=== PATIENT | female | born 1965 | race Caucasian/White ===

== ENCOUNTER 2024-05-18 14:00 | Emergency (ER) | payer SELFPAY ==
[~2024-05-18] VITALS: Ht 165.1 cm; Wt 97.5 kg
[2024-05-18 15:01] VITALS: BP 107/65; PULSE 77; RESP 19; TEMP 98.2; O2SAT 100
[2024-05-18] MEDS: KETOROLAC 30 MG/ML VIAL IM ONE (16:35)
[2024-05-18 16:55] LABS: HEMOGLOBIN 12.4 g/dL (12.0-16.0); MEAN CORPUSCULAR HEMOGLOBIN 26 pg (27-31); MEAN CORPUSCULAR HGB CONC 32 g/dL (33-37); MEAN CORPUSCULAR VOLUME 80.4 fL (80-94); PLATELET COUNT (AUTO) 287 K/uL (140-450); RED BLOOD CELL COUNT(AUTO) 4.84 MIL/uL (4.20-5.40); RED CELL DISTRIBUTION WIDTH 18.3 % (11.6-13.7); WHITE BLOOD COUNT (AUTO) 10.1 K/uL (4.8-10.8)
[2024-05-18 17:05] LABS: APPEARANCE,URINE CLEAR (CLEAR); BILIRUBIN,URINE 1+ (NEGATIVE); BLOOD, URINE NEGATIVE (NEGATIVE); COLOR,URINE YELLOW (YELLOW); LEUKOCYTE ESTERASE ,URINE NEGATIVE (NEGATIVE); NITRITE, URINE NEGATIVE (NEGATIVE); PROTEIN,URINE NEGATIVE (NEGATIVE); UGLUCOSE NEGATIVE (NEGATIVE); UROBILINOGEN,URINE 0.2 EU/dL (0.2 - 1)
[2024-05-18 17:15] LABS: ANION GAP 8.9 (8-16); CALCIUM 8.9 mg/dL (8.5-10.1); CARBON DIOXIDE 29.9 mmol/L (21-32); CREATININE 0.8 mg/dL (0.6-1.3); POTASSIUM 3.8 mmol/L (3.5-5.1)
[2024-05-18 17:15] LABS: ICTOTEST NEGATIVE (NEGATIVE)
[2024-05-18 18:02] LABS: BASOPHILS % (MANUAL) 2 % (0-2); EOSINOPHILS % (MANUAL) 1 % (0-4); LYMPHOCYTES % (MANUAL) 14 % (20-46); MONOCYTES % (MANUAL) 5 % (5-12)
[2024-05-18] MEDS ORDERED: ACET-8905 PO (18:02)
[2024-05-18 18:03] LABS: METAMYELOCYTES % 1 % (0-0); PLATELET ESTIMATE ADEQUATE
[2024-05-18 18:04] LABS: ANISOCYTOSIS 1+; OVALOCYTES 1+
[2024-05-18] MEDS: HYDROcodone/APAP 5/325 MG 1 TAB TAB PO ONE (18:23)
[2024-05-18 19:44] VITALS: BP 109/62; PULSE 77; RESP 19; TEMP 98.2; O2SAT 100
== END 2024-05-18 19:44 | disposition home or self-care (01) ==
LOC: MED 14:00
DX: S30.0XXA Contusion of lower back and pelvis, initial encounter (principal); I48.91 Unspecified atrial fibrillation; Z79.899 Other long term (current) drug therapy; V89.9XXA Person injured in unspecified vehicle accident, initial encounter; Y93.89 Activity, other specified; Y92.89 Other specified places as the place of occurrence of the external cause; Y99.8 Other external cause status
CPT/HCPCS: 36415; 71045; 72100; 80048; 81003; 83880; 84484; 85025; 93005; 96372; 99285; J1885